=== PATIENT | male | born 1950 | race Caucasian/White ===

== ENCOUNTER 2022-11-23 05:33 | Outpatient (CLI) | payer OTHER ==
[~2022-11-23] VITALS: Ht 175.3 cm; Wt 94.2 kg
[~2022-11-23 05:33] MED LIST: ONDAN4ODT SL
[2022-11-23] MEDS ORDERED: POLY1DRO OP (12:21)
[2022-11-23] MEDS ORDERED: ASPI-808 PO (12:21)
[2022-11-23] MEDS ORDERED: FAMO40TA6 PO (12:21)
[2022-11-23] MEDS ORDERED: INSU100V6 SQ (12:21)
[2022-11-23] MEDS ORDERED: TOLN1POW MC (12:21)
[2022-11-23] MEDS ORDERED: GABA300C PO (12:21)
[2022-11-23] MEDS ORDERED: METF-397 PO (12:21)
[2022-11-23] MEDS ORDERED: AMLO-251 PO (12:21)
[2022-11-23] MEDS ORDERED: LORA10TA7 PO (12:21)
[2022-11-23] MEDS ORDERED: LISI40TA9 PO (12:21)
[2022-11-23] MEDS ORDERED: [UNRECOGNIZED DRUG - CODE] OP (12:21)
[2022-11-23] MEDS ORDERED: ALLO100T PO (12:21)
[2022-11-23] MEDS ORDERED: ATOR20TA66 PO (12:21)
[2022-11-23] MEDS ORDERED: MELO15TA39 PO (12:21)
[2022-11-23] MEDS ORDERED: MULT-1136 PO (12:21)
== END 2022-11-23 12:28 | disposition home or self-care (01) ==
LOC: PREOP 05:33
PROVIDERS: ATTEND Surgery
DX: Z01.818 Encounter for other preprocedural examination (principal)

== ENCOUNTER 2022-11-30 08:57 | Day surgery (SDC) | payer OTHER ==
[~2022-11-30] VITALS: Ht 175.3 cm; Wt 94.2 kg
[2022-11-30] VITALS (11 sets, daily range): BP systolic 112–141; BP diastolic 68–86
[~2022-11-30 08:57] MED LIST changes: +ALLO100T PO; +AMLO-251 PO; +ASPI-808 PO; +ATOR20TA66 PO; +FAMO40TA6 PO; +GABA300C PO; +INSU100V6 SQ; +LISI40TA9 PO; +LORA10TA7 PO; +MELO15TA39 PO; +METF-397 PO; +MULT-1136 PO; +POLY1DRO OP; +TOLN1POW MC; +[UNRECOGNIZED DRUG - CODE] OP
[2022-11-30] MEDS: LACTATED RINGERS 1,000 ML IV PRN ×2 (09:20→11:45)
[2022-11-30] MEDS ORDERED: CLINDAMYCIN 600 MG/50 ML IVPB 50 ML IV ONE ×2 (09:27→09:30)
[2022-11-30] MEDS ORDERED: BUP/EPI 0.5% 1:200,000 (SENSORCAINE) 30 ML VIAL ONE (09:38)
[2022-11-30] MEDS ORDERED: ONDANSETRON 4 MG/2 ML (SDV) Z0FRAN IVP PRN ×2 (10:00→12:30)
[2022-11-30] MEDS ORDERED: morphine INJ 10 MG/ML 1ML (SYR OR VIAL) IVP PRN (10:00)
[2022-11-30] MEDS ORDERED: HYDROcodone/APAP 5 MG/325 MG (LORTAB) TAB PO ONE (10:00)
[2022-11-30] MEDS ORDERED: ACETAMINOPHEN 325 MG TABLET PO PRN (10:00)
[2022-11-30] MEDS ORDERED: HYDR-3817 PO (10:03)
--- NOTE | 2022-11-30 10:03 | Discharge Inst-Surgical ---
D/C Lap Instructions-KIDO Reconcile Patient Problems Problems Reviewed?: Yes New, Converted, or Re-Newed RX: RX on Chart Follow Up Appt in 2 weeks Activity as tolerated No driving for 24 hours No driving while on pain medications Incentive Spirometry use every 2 hours while awake Regular Diet Symptoms to Report: Fever over 101 degree F, Nausea/Vomiting Infection Signs and Symptoms to report: Increased redness, Foul odor of wound, Increased drainage Bathing instructions: May shower Operative Area Clean/Dry; Keep incision clean/dry If any problems/questions: Contact your physician or go to Emergency Room PETRA PAREDES APRN Nov 30, 2022 10:03
--- NOTE | 2022-11-30 10:04 | Progress Note-Pre Operative ---
Pre-Operative Progress Note Date H&P Reviewed: Nov 30, 2022 Time H&P Reviewed: 10:00 History & Physical: H&P Reviewed, Patient Examed, No changes noted Pre-Operative Diagnosis: Symptomatic left inguinal hernia PETRA PAREDES APRN Nov 30, 2022 10:04
[2022-11-30] MEDS ORDERED: proPOfol 200 MG/20 ML (DIPRIVAN) VIAL IV ONE (10:15)
[2022-11-30] MEDS ORDERED: fentaNYL INJ 100 MCG/2 ML AMP ONE (10:15)
[2022-11-30] MEDS ORDERED: ROCURONIUM 50 MG/5 ML (ZEMURON) VIAL IV ONE (10:15)
[2022-11-30] MEDS ORDERED: MIDAZOLAM 2 MG/2 ML (VERSED) VIAL ONE (10:15)
[2022-11-30] MEDS ORDERED: LIDOCAINE PF 2% 5 ML (XYLOCAINE) VIAL ONE (10:15)
[2022-11-30] MEDS ORDERED: ONDANSETRON 4 MG/2 ML (SDV) Z0FRAN ONE (10:15)
[2022-11-30] MEDS ORDERED: BUP/EPI 0.5% 1:200,000 (SENSORCAINE) 30 ML VIAL INJ ONE (12:00)
[2022-11-30] MEDS ORDERED: SEVOFLURANE (ULTANE) 15 ML INHAL SOLN ONE (12:18)
--- NOTE | 2022-11-30 12:19 | Progress Note-Post Operative ---
Post-Operative Progess Note Surgeon (s)/Legal Secretary Receptionist (s) Surgeon BIB ARELLANO MD Legal Secretary Receptionist: carmel hennessy PHARMACEUTICAL ASSISTANT Pre-Operative Diagnosis Symptomatic left inguinal hernia Post-Operative Diagnosis reducible left direct and indirect inguinal hernia. Procedure & Operative Findings Date of Procedure 11/30/22 Procedure Performed/Findings laparoscopic left inguinal hernia repair with mesh. Anesthesia Type get Estimated Blood Loss Estimated blood loss (mL): minimal Specimens/Packing Specimens Removed none BIB ARELLANO MD Nov 30, 2022 12:19
[2022-11-30] MEDS ORDERED: PROMETHAZINE INJ 25 MG/ML (PHENERGAN) AMP IVP ONE (12:30)
[2022-11-30] MEDS ORDERED: morphine INJ 10 MG/ML 1ML (SYR OR VIAL) IVP ONE (12:30)
[2022-11-30] MEDS ORDERED: HYDROmorphone 2 MG/ML VIAL (DILAUDID) IV ONE (12:30)
--- NOTE | 2022-11-30 12:50 | HISTORY AND PHYSICAL ---
DATE OF SERVICE: 11/30/2022 INDICATION: The patient is a 72-year-old male who was referred over to us for a left inguinal hernia. He reports this has been there for the past 2 months and reports that one day he was getting out of a chair and felt a pop and reports that he did have pain in the left inguinal region after this. He reports that since that time, pain had improved; however, this is cutter tender at times. He denies any diarrhea or constipation. He does report that he did have a right inguinal hernia fixed in the late and also for umbilical hernia fixed in the early . He reports that there was mesh placed to fix both hernias. PAST MEDICAL HISTORY: Type 2 diabetes, hypertension, hypercholesterolemia, gastroesophageal reflux disease, degenerative joint disease, gout, peripheral neuropathy. SURGICAL HISTORY: Right total knee replacement 2001, right total knee revision in 2013, open right inguinal hernia repair with mesh in the , open umbilical hernia repair with mesh in the early . ALLERGIES: PENICILLIN. MEDICATIONS: Aspirin 325 mg daily, multivitamin, loratadine 10 mg daily, meloxicam 15 mg daily, allopurinol 100 mg daily, famotidine 40 mg daily, amlodipine 10 mg daily, atorvastatin 20 mg daily, metformin 500 mg, ketotifen fumarate 0.025% ophthalmic solution as directed, gabapentin 300 mg, lisinopril 40 mg, Lantus as directed. SOCIAL HISTORY: Negative for tobacco smoke. Negative for alcohol. FAMILY HISTORY: Maternal grandmother, diabetes. Maternal grandfather, myocardial infarction. VITAL SIGNS: Blood pressure is 118/70. Current weight 207.6 pounds, height 5 feet 9 inches. REVIEW OF SYSTEMS: A well-nourished male in no acute distress. He is not experiencing any shortness of breath or difficulty breathing. No chest pain, palpitations or diaphoresis. No nausea, vomiting or abdominal pain. No diarrhea or constipation. He does report a left inguinal hernia. No red blood per rectum. No dark tarry stools. No fever or chills. No recent inadvertent weight loss. All other review of systems negative. PHYSICAL EXAM: CHEST: Clear. Good breath sounds bilaterally. HEART: Regular, no murmurs. EXTREMITIES: No lower extremity edema. Negative Homans sign. HEENT: No scleral icterus. No cervical lymphadenopathy. ABDOMEN: Soft, nondistended. There is a left inguinal hernia present upon Valsalva maneuver that is reducible; however, this is tender to palpation. SKIN: Warm, dry and pink. NEUROLOGIC: Awake, alert and oriented x3. ASSESSMENT AND PLAN: A 72-year-old male with a symptomatic reducible left inguinal hernia. The natural history of hernias was explained to the patient as well as the risk of incarceration or strangulation. At this time, he verbalizes understanding of instructions and agrees to proceed as planned. PLAN: We will proceed with scheduling him for a laparoscopic left inguinal hernia repair with mesh. Job ID: [id number] DocumentID: [id number] Dictated Date: 11/30/2022 09:56:01 Environmental Field Services Technician Date: 11/30/2022 12:48:00 Dictated By: PETRA PAREDES APRN
--- NOTE | 2022-11-30 13:44 | Anesthesia-General Post-Op ---
General Patient Condition Mental Status/LOC: Same as Preop Cardiovascular: Satisfactory Nausea/Vomiting: Absent Respiratory: Satisfactory Pain: Controlled Complications: Absent Post Op Complications Complications None Follow Up Care/Instructions Patient Instructions None needed. Anesthesia/Patient Condition Patient Condition Patient is doing well, no complaints, stable vital signs, no apparent adverse anesthesia problems. No complications reported per nursing. MINERVA BOYER CRNA Nov 30, 2022 13:43
--- NOTE | 2022-11-30 19:57 | OPERATIVE REPORT ---
DATE OF SERVICE: 11/30/2022 ATTENDING PRIMARY CARE PHYSICIAN: Dr. Ezra Kline PREOPERATIVE DIAGNOSIS: Symptomatic reducible left inguinal hernia. POSTOPERATIVE DIAGNOSIS: Symptomatic reducible left inguinal pantaloon hernia or both direct and indirect inguinal hernia component. PROCEDURE: Laparoscopic left inguinal hernia repair with mesh. SURGEON: Bib Arellano MD PLUNGER MACHINE OPERATOR: Hunter Edwards APRN ANESTHESIA: General endotracheal. ESTIMATED BLOOD LOSS: Minimal. FINDINGS: Symptomatic reducible left inguinal pantaloon hernia or both direct and indirect inguinal hernia component. DISPOSITION: The patient tolerated the procedure well. INDICATIONS: The patient is a 72-year-old male who referred over to us for pain and swelling in the left inguinal region. He states that he noticed this a few months ago and has grown larger in size and become more painful. He was seen in the office and found to have a reducible left inguinal hernia, which is tender to palpation. He reports that he has had previous hernias including a right inguinal as well as an umbilical hernia, which were both repaired by open technique around the year 1999. He is otherwise eating well and having normal bowel movements. DESCRIPTION OF PROCEDURE: The patient was brought to the operating room, laid supine on the table. After adequate IV pain and sedative medications and general endotracheal intubation, the abdomen was prepped and draped in standard surgical fashion. A 0.5% Marcaine with epinephrine was used to anesthetize the infraumbilical rim and a transverse skin incision made using a #15 blade. A sharp towel clamp was used to retract the abdominal wall anteriorly and a Veress needle inserted with a low opening pressure of zero mm of mercury pressure. The Veress needle removed and a 10 mm trocar placed followed by a 10 mm 45-degree angle laparoscope visualizing the peritoneal cavity. A 4-quadrant abdominal exploration was performed. There was a left pantaloon inguinal hernia encompassing both the direct and indirect hernia component. There was no right inguinal hernia. The remainder of the small bowel and colon appeared normal. Under direct visualization, we then proceeded to place bilateral 5 mm ports after the skin and peritoneal lining were anesthetized using 0.5% Marcaine with epinephrine and transverse skin incision was made using a #15 blade. The peritoneal lining was then opened starting laterally towards the conjoined tendon and inguinal ligament using a Sonicision. We then proceeded medially until the conjoined tendon identified. We then proceeded with inferior dissection encompassing both the direct hernia component as well as the indirect inguinal hernia component. The cord and its surrounding contents identified and spread throughout the process. Good hemostasis was observed. A medium size 3DMax polypropylene mesh was placed through the 10 mm port site and tacked to Morteza's ligament medially with absorbable tacks and to the inguinal ligament laterally. The peritoneal lining was then placed over the mesh and a few absorbable tacks placed to hold this in place with visualization of good hemostasis. The 10 mm port site fascia and peritoneum were then closed under direct visualization using a Jules-Linnea device and an 0 Vicryl suture. The abdomen was desufflated and remaining ports removed. All skin incisions were closed using 4-0 Monocryl running subcuticular sutures. Wounds were then cleaned and covered with Dermabond. The patient tolerated the procedure well. We will start clear liquid diet, IV and oral pain medication and as well as incetive spirometer. Once he is tolerating clears with has good pain control with oral pain medications, ambulating well, we will discharge him home where he will be instructed to do no heavy lifting or exertion for the next 2 weeks as well as to wear his scrotal support during that same timeframe. Job ID: [id number] DocumentID: [id number] Dictated Date: 11/30/2022 12:31:24 Ground Operations Supervisor Date: 11/30/2022 19:54:00 Dictated By: BIB ARELLANO MD [facility]
== END 2022-11-30 14:35 ==
LOC: SDC 08:57
PROVIDERS: ATTEND Surgery
DX: K40.90 Unilateral inguinal hernia, without obstruction or gangrene, not specified as recurrent (principal)
CPT/HCPCS: 82947; 87081

== ENCOUNTER → 2022-12-11 | Outpatient (CLI) | payer OTHER ==
[~2022-12-11] MED LIST changes: +HYDR-3817 PO
--- NOTE | 2022-12-11 09:55 | Diagnostic Imaging Report ---
PROCEDURE: CT abdomen and pelvis without contrast. TECHNIQUE: Multiple contiguous axial images were obtained through the abdomen and pelvis without the use of intravenous contrast. Auto Exposure Controls were utilized during the CT exam to meet ALARA standards for radiation dose reduction. INDICATION: Liver nodularity. The study is performed for further evaluation. No prior studies are available for comparison. The lung bases are clear. There is mild liver nodularity noted but no discrete liver mass is detected. Gallbladder is unremarkable. There is no biliary duct dilatation. The pancreas and spleen are unremarkable. No adrenal mass is identified. Small cortical low-attenuation lesion in the upper pole of the right kidney is noted, likely a cyst. No definite calculi or hydronephrosis is identified. Aorta is nonaneurysmal. Bowel loops are normal caliber. There is no obstruction. No free fluid or fluid collection is identified. There appear to be postop changes of left inguinal region. Prostate is unremarkable. Bony structures are nonacute. IMPRESSION: 1. Liver surface nodularity. Cirrhosis cannot be entirely excluded. No liver mass is detected. 2. No acute abnormality in the abdomen or pelvis is detected. Dictated by: Dictated on workstation # [id number]
== END ==
LOC: RAD 09:08
PROVIDERS: ATTEND Family Medicine
DX: Z01.89 Encounter for other specified special examinations (principal); K76.89 Other specified diseases of liver
CPT/HCPCS: 74176